=== PATIENT | female | born 1935 | race Caucasian/White ===

== ENCOUNTER 2019-10-14 15:28 | Inpatient (IN) | payer MEDICARE, OTHER ==
[~2019-10-14] VITALS: Ht 165.1 cm; Wt 72.5 kg
[2019-10-14] MEDS ORDERED: ASPIR 8181 MG PO (16:11)
[2019-10-14] MEDS ORDERED: LIPITOR20 MG PO (16:12)
[2019-10-14] MEDS ORDERED: CYMBALTA30 MG PO (16:13)
[2019-10-14] MEDS ORDERED: VITAMIN D325 MC2 PO (16:13)
[2019-10-14] MEDS ORDERED: LIDOCAINE1 EAC1 TP (16:14)
[2019-10-14] MEDS ORDERED: MAGOX 400400 MG PO (16:15)
[2019-10-14] MEDS ORDERED: PANTOPRAZOLE SO40 MG PO (16:16)
[2019-10-14] MEDS ORDERED: METOPROLOL SUCC50 MG PO (16:16)
[2019-10-14] MEDS ORDERED: MIRAPEX0.5 MG PO (16:17)
[2019-10-14] MEDS ORDERED: SENNA PLUS 8.61 EACH PO (16:18)
[2019-10-14] MEDS ORDERED: PRESERVISION A1 EAC1 PO (16:18)
[2019-10-14] MEDS ORDERED: ALDACTONE25 MG PO (16:19)
[2019-10-14] MEDS ORDERED: SPIRONOLACTONE50 MG PO (16:19)
[2019-10-14] MEDS ORDERED: TRAZODONE HCL50 MG (16:20)
[2019-10-14] MEDS ORDERED: COLACE100 MG PO (16:20)
[2019-10-14] MEDS ORDERED: MORPHINE SULFAT15 MG PO (16:21)
[2019-10-14] MEDS ORDERED: PERCOCET 5-3251 EACH PO (16:22)
--- OUTSIDE RECORDS SUMMARY | 2019-10-14 16:54 | XMS ---
PreManage Notification: KOBE MURILLO [employer] Events No recent Security Events currently on file [facility] in [facility] Days CARE PROVIDERS Name Unknown Snf Facility Current PHONE: [phone] Addison Thomas MD [facility] Current PHONE: Unknown Jamie has no Care Guidelines for this patient. Penny VISIT COUNT (12 MO.) 6 Juana Braden [address] [place] [address] TOTAL 7 NOTE: Visits indicate total known visits. ED/UCC VISIT TRACKING (12 MO.) 10/14/2019 15:30 CHARISSA Noonan [place] TYPE: Emergency COMPLAINT: - LATHARGIC, SOB 09/15/2019 13:55 Juana KATHLEEN [place] TYPE: Emergency DIAGNOSES: - Chronic kidney disease, stage 3 (moderate) - Other acute kidney failure - Localized edema - Fall - Hyperosmolality and hypernatremia - Other specified abnormal findings of blood chemistry - Anemia in other chronic diseases classified elsewhere 07/24/2019 18:29 Juana Ortabe ClMimi KATHLEEN [place] TYPE: Emergency DIAGNOSES: - Leg Swelling - Swollen Legs - Localized edema 04/07/2019 13:00 Juana Ortabe ClMimi [facility]LE[facility] [place] TYPE: Emergency DIAGNOSES: - Altered Mental Status - Shortness of Breath 02/01/2019 14:52 Juana Ashley KATHLEEN [place] TYPE: Emergency DIAGNOSES: - Chronic obstructive pulmonary disease with (acute) exacerbati - Calculus of ureter - Generalized pain, confusion - Disorder of kidney and ureter, unspecified - Shortness of Breath - Acute respiratory failure with hypoxia - Acute respiratory failure with hypercapnia 01/29/2019 07:32 Juana KATHLEEN [place] TYPE: Emergency DIAGNOSES: - Back Pain - Pain in thoracic spine 11/03/2018 10:22 Juana KATHLEEN [place] TYPE: Emergency DIAGNOSES: - Contusion of unspecified back wall of thorax, initial encount - Wrist Pain - Wrist Injury - Unspecified sprain of left wrist, initial encounter INPATIENT VISIT TRACKING (12 MO.) 09/15/2019 13:55 Juana KATHLEEN [place] TYPE: Internal Medicine DIAGNOSES: - Hyperosmolality and hypernatremia - Localized edema - Anemia in other chronic diseases classified elsewhere - Other specified abnormal findings of blood chemistry - Fever, unspecified - Other acute kidney failure - Chronic kidney disease, stage 3 (moderate) 04/07/2019 13:00 Juana SPENCE TYPE: General Medicine DIAGNOSES: - Shortness of breath - Acute kidney failure, unspecified 02/01/2019 14:52 Juana Ashley ClMimi [facility] [place] TYPE: Internal Medicine DIAGNOSES: - Acute respiratory failure with hypoxia - Dependence on supplemental oxygen - Chronic obstructive pulmonary disease with (acute) exacerbati - Essential (primary) hypertension - Age-related physical debility - Calculus of ureter - Acute and chronic respiratory failure with hypercapnia - Acute diastolic (congestive) heart failure - Other director long term care (current) drug therapy - Acute respiratory failure with hypercapnia - Disorder of kidney and ureter, unspecified - Acute and chronic respiratory failure with hypoxia [id number]
--- NOTE | 2019-10-14 22:00 | NUR ---
PT ARRIVES TO CCU ROOM 128, ARRIVES WITH RT, PLACED ON BIPAP SETTING 40% 24/08. PT IS MOANING AND AWAKE, ASSESSMENT DONE. LUNGS DIM AND TIGHT SOUNDING. GARCIA EMPTIED OF 2000ML. PT ALERT AND ORIENTED, ANSWERS APPROPRIATELY FOR PLACE, YEAR AND SELF. RT GIVING NEB TX.
--- NOTE | 2019-10-14 22:30 | NUR ---
DR WARNER UPDATED ON PT CONDITION AND PT'S MOANING IN PAIN-ORDER GIVEN FOR PRN MORPHINE.
--- NOTE | 2019-10-15 00:35 | NUR ---
PT WOKE UP AGIATED, PULLING OFF BIPAP, MOANING AND SAYING BACK IS HURTING. 2MG IV MORPHINE GIVEN.
--- NOTE | 2019-10-15 01:00 | NUR ---
PT AWAKE AND PULLING OFF BIPAP, MOANING ABOUT DIFFERENT THINGS "I WANT WATER!" "I CANT BREATHE!". IN TO REASSURE/CALM PT. WARM BLANKET PROVIDED. PT HELPED TO REPOSITION, EVENTUALLY CALMS SOME AND IS NOW RESTING WEARING BIPAP WITH EYES CLOSED. RR 24, SPO2 100%, HR 66 BIPAP SETTINGS REMAIN UNCHANGED, 24/5 AND FIO2 40%.
--- NOTE | 2019-10-15 03:21 | NUR ---
PT RESTING WITH EYES CLOSED, RESP EVEN AND UNLABORED, REMAINS ON BIPAP, HR 50'S.
--- NOTE | 2019-10-15 04:44 | NUR ---
PT HAS REMAINED RESTFUL AND CALM FOR THE LAST FOUR HOURS. HR 50'S. WEARING BIPAP WITH SPO2 99% 24/5 40%.
--- NOTE | 2019-10-15 06:56 | NUR ---
PT MOANING OUT, CALLING FOR WATER AND TEARING BIPAP OFF. IN TO HELP CALM PT, REPLACE BIPAP, GAVE MOUTH SWABS WITH WATER, AND REPOSITION IN BED.
--- NOTE | 2019-10-15 07:30 | NUR ---
REPORT RECIEVED. PATIENT IS ON BIPAP. ECHO BEING DONE AT BEDSIDE.
--- NOTE | 2019-10-15 08:00 | NUR ---
ECHO COMPLETE. ASSESSMENT DONE. WATER GIVEN PER REQUEST. ON OXYMASK FOR APPROX 5 MIN THEN BIPAP REAPPLIED. TALKED WITH PATIENT ABOUT OF CARE FOR DAY. UNSURE IF PATIENT IS UNDERSTAND OF THIS OR NOT.
--- NOTE | 2019-10-15 08:30 | NUR ---
DR. WARNER HERE TO SEE PATIENT. ORDERS RECIEVED. IVF D5 LR AT 50 ML/HR ORDERED AND HUNG. HAS BEEN REQUESTIN WATER. ORAL CARE GIVEN.
--- NOTE | 2019-10-15 08:55 | NUR ---
MORPHINE 2 MG GIVEN FOR GENERAL PAIN. LOPRESSOR 5 MG IV GIVEN PER ORDERS.
--- NOTE | 2019-10-15 09:05 | NUR ---
ZOFRAN GIVEN FOR MILD NAUSEA. REMAINS NPO.
--- NOTE | 2019-10-15 09:08 | EKG ---
[facility] [address] [place], [place] [address] Signed Sinus bradycardia with 1st degree AV block Otherwise normal ECG No previous ECGs available Confirmed by BELIA WARNER MD ([id number]) on 10/15/2019 9:08:34 AM Electronically Signed By: BELIA WARNER MD 10/15/19 0908 PATIENT NAME: KOBE MURILLO Electrocardiogram DATE OF : 37 PHYSICIAN: BELIA WARNER MD REPORT #: [id number] REPORT IS CONFIDENTIAL AND NOT TO BE RELEASED WITHOUT AUTHORIZATION
--- NOTE | 2019-10-15 10:10 | NUR ---
AWAKE. CONTINUE TO MOAN AT TIMES. BED LINEN CHANGED. REPOSITIONED.
--- NOTE | 2019-10-15 10:20 | NUR ---
REPOSITIONED. REMAINS ON BIPAP. VBG TO BE DRAWN SOON. MOANS OUT AT TIMES.
--- NOTE | 2019-10-15 10:30 | NUR ---
VBGS DRAWN AND SENT TO LAB. ORAL CARE REPEATED. IS MORE CALM AT THIS TIME.
--- NOTE | 2019-10-15 11:00 | NUR ---
VBG RESULTS, PH-7.31, PCO2-70.7, PO2-113, HCO2-43.5, SAT-98.9. PATIENT IS SLEEPING NO DISTRESS NOTED. IVF, GARCIA CATH IS PATENT.
--- NOTE | 2019-10-15 12:00 | NUR ---
REMAINS ASLEEP. RT HERE TO DONE NEB TREATMENT. RT DECREASED FIO2 ON BIPAP TO 30. NO FUTHER CHANGES AT THIS TIME.
--- NOTE | 2019-10-15 13:20 | NUR ---
AWAKE, VERY ANXIOUS. RETCHING, C/O NAUSEA, THEN HAD SMALL GREEN BILE LIKE EMESIS. MOANING. WHEN ASKED PATIENT IF SHE IS HAVING ABD PAIN SHE INDICATES THEAT SHE IS HAVIBG PAIN. FEELS THE NEED TO HAVE BM, BEDPAN GIVEN. PASSED FLATUS. REPOSITIONED.
--- NOTE | 2019-10-15 13:27 | NUR ---
MORPHINE 4 MG IV GIVEN FOR COMFORT. ORAL CARE GIVEN.
--- NOTE | 2019-10-15 13:40 | NUR ---
DR. WARNER UPDATED ON PATIENT. ORDERS RECIEVED TO GIVE DULCOLAX SUPP. PATIENT IS NOW SLEEPIN. WILL WAIT AT THIS TIME. IS ON OXYMASK AT 4 L CURRENTLY, WAS NAUSEATED.
[2019-10-15] MEDS ORDERED: ACETAMINOPHEN325 M1 PO (14:28)
[2019-10-15] MEDS ORDERED: DULCOLAX10 MG PR (14:29)
[2019-10-15] MEDS ORDERED: IPRAT-ALBUT 0.5-3 ML PO (14:30)
[2019-10-15] MEDS ORDERED: MILK OF MA400 MG/5 M PO (14:31)
[2019-10-15] MEDS ORDERED: MIRALAX17 GM PO (14:32)
[2019-10-15] MEDS ORDERED: VENTOLIN HFA18 GM PO (14:33)
[2019-10-15] MEDS ORDERED: ONDANSETRON ODT4 MG PO (14:34)
--- NOTE | 2019-10-15 14:48 | NUR ---
MEDICATION RECONCILIATION DONE
--- NOTE | 2019-10-15 16:10 | NUR ---
VBG'S DRAWN ON OXYMASK AT 4 L LITERS. ASSESSMENT DONE. IS ABLE TO FOLLOW COMMANDS. CONTINUE TO C/O SLIGHT NAUSEA. NO TREATMENT GIVEN AT THIS TIME.
--- NOTE | 2019-10-15 17:10 | NUR ---
restless. BIPAP ALARM GOING OFF. UPON ENTERING ROOM PATIENT IS MOANING AND SAING SHE IS HAVING A BM. INC OF SMALL AMOUNT OF STOOL. BEDPAN PLACED.
--- NOTE | 2019-10-15 17:20 | NUR ---
ON BEDPAN. MOANING. ANXIOUS. NAUSEATED. NOW ON OXYMASK AT 4 L . DIFFICULT TO CONSOLE PATIENT.
--- NOTE | 2019-10-15 17:40 | NUR ---
MORPHINE 4 MG IV GIVEN FOR COMFORT. ZOFRAN 4 MG IV GIVEN FOR NAUSEA.
--- NOTE | 2019-10-15 17:40 | NUR ---
WHILE ON BED NEGRO DID EXPELL SMALL AMOUNT OF LIQUID STOOL. BED NEGRO AKEN OUT AND WHILE ATTEMPTING TO CHANGE LINEN, SMALL STOOL LIQUID. ATTENDS CHANGED.
--- NOTE | 2019-10-15 18:00 | NUR ---
LAYING ON RIGHT SIDE. SATS DOWN TO LOW 80'S. HEAD REPOSITIONED. THEN SATS TO 90.
--- NOTE | 2019-10-15 18:10 | NUR ---
O2 SAT DOWN AGAIN TO LOW 80'S. BIPAP FIO2 INCREASED TO 40. DR. PUGH UPDATED, NO FUTHER ORDERS NOTED.
--- NOTE | 2019-10-15 18:55 | NUR ---
HAS BEEN SLEEPING SINCE MEDICATON GIVEN. REPORT TO MED-SURG.
--- NOTE | 2019-10-15 20:30 | NUR ---
AWAKENS EASILY, OFF CPAP AND OXYMASK 4L PLACED. USING SWABS TO MOISTEN MOUTH. REPOSITIONED. HAD SMEAR OF STOOL. PT FEELS LIKE SHE NEEDS TO HAVE BM BUT JUST PASSED GAS. PT WAS TALKATIVE.
--- NOTE | 2019-10-15 23:45 | NUR ---
PT MOAING, TOOK CPAP OFF. C/O NAUSEA WITH SOME RETCHING, NO EMESIS. GIVEN 4MG ZOFRAN IV. IV L FORARM LEAKING SLIGHTLY, DC'D. NEW IV STARTED R FORARM, SMALL AMT BRUISING AT SIGHT. PT C/O THIRST AND ABOUT 15MIN AFTER ZOFRAN WAS GIVEN SMALL SIPS WATER. JENSEN WELL ABLE TO TAKE PO MED WELL. IS PASSING GAS, NO STOOL NOTED ON ATTENDS. REPOSITIONED.
--- NOTE | 2019-10-16 02:35 | NUR ---
MORE WAKEFUL, CALLING FOR WATER. REPOSITIONED AND WATER PLACED IN REACH.
--- NOTE | 2019-10-16 04:09 | NUR ---
AWAKE MOANING, C/O ABD PAIN. GIVEN 5MG OXYCODONE. IS PASSING GAS. TAKING SIPS WATER. SATS 100%, 02 DEC TO 2L OXYMASK.
--- NOTE | 2019-10-16 05:30 | NUR ---
SLEEPING WITH OXYMASK IN PLACE.
--- NOTE | 2019-10-16 06:36 | NUR ---
PT MOANING WITH BACK PAIN. WILL TRY REPOSITIONING PT. LABS DRAWN PER SALINE LOCK.
--- NOTE | 2019-10-16 07:00 | NUR ---
VBG RESULTS BACK, C02 87.2, PH 7.25. PT CONT TO MOAN. GIVEN 2MG MORPHING IV AND PLACED ON BIPAP. PT THEN FELL ASLEEP.
--- NOTE | 2019-10-16 07:42 | NUR ---
REPORT RECIEVED. PATIENT IS RESTING IN BED WITH BIPAP ON. NO DISTRESS NOTED.
--- NOTE | 2019-10-16 08:00 | NUR ---
ROUTINE NEB GIVEN BY RT. ASSESSMENT DONE. PATIENT IS MOANING. OOB TO CHAIR WITH ASSIST.
--- NOTE | 2019-10-16 08:30 | NUR ---
MOANING, C/O NAUSEA. REMAINS IN CHAIR. ORAL CARE GIVEN, THEN BIPAP REAPPLIED.FI02 DECREASED TO 35% SAT98 TO 100. WILL CONTINUE TO TITRATE PRN. WANG SARMIENTO WITH SMALL AMOUNT OF CLEAR YELLOW URINE NOTED. IVF INFUSING AT 50 ML/HR.
--- NOTE | 2019-10-16 08:45 | NUR ---
O2 DECREASED TO 30% O2 SAT REMAIN IN MID TO HIGH 90'S. HAS BEEN MORE CALM .
--- NOTE | 2019-10-16 10:00 | NUR ---
SLEEPING IN CHAIR WITH BIPAP ON. O2 SAT ON 30% 94.
--- NOTE | 2019-10-16 11:30 | NUR ---
AWAKE, C/O GENERALIZED PAIN, MILD NAUSEA. IS CONFUSED. ASKING MANY QUESTIONS. OFF BIPAP, NOW ON O2 AT 2 L NC.
--- NOTE | 2019-10-16 12:00 | NUR ---
DR. PUGH HERE TO SEE PATIENT, ORDERS RECIEVED, VBG'S DRAWN. PATIENT IS COOPERATIVE. LASIX 20 MG IV GIVEN AND PREDNISONE 40 MG GIVEN. PATIENT HAD TROUBLE SWALLOWING PO PREDNISONE. WILL PUT IN APPLESAUSE FROM NOW ON. ASSESSMENT DONE. IVF REMAINS AT 50 ML/HR.
--- NOTE | 2019-10-16 12:05 | NUR ---
VBG RESULTS, PH-7.30, PCO2-73.7, PO2-103, HCO3-35.0.
--- NOTE | 2019-10-16 13:30 | NUR ---
attempted to feed patient lunch of mashed potatoes with gravy and pureed peaches. patient only took few small bites. having difficulty swallowing.
--- NOTE | 2019-10-16 13:58 | NUR ---
PT ASLEEP, ON CPAP. AND UNDER PRECAUTINS. UNABLE TO VISIT AT THIS TIME
--- NOTE | 2019-10-16 14:15 | NUR ---
REMAINS IN CHAIR. MOANING LOUDLY. C/O GENERAL PAIN.HAS BEEN ON O2 AT 2 L NC SINCE APPROX 1130.
--- NOTE | 2019-10-16 14:40 | NUR ---
OXYCODONE GIVEN FOR GENERAL PAIN. RATES 09/10.
--- NOTE | 2019-10-16 14:45 | NUR ---
BACK TO BED WITH ASSIST.BIPAP REAPPLIED. 30% FIO2, 24/6.
--- NOTE | 2019-10-16 16:00 | NUR ---
ORDERS RECIEVED TO GIVEN ENEMA. THIS DONE. SS ENEMA 1500 ML GIVEN. LARGE RESULTS. AFTER ENEMA, ASSESSMENT DONE. BIPAP AT 35% FIO2 DECREASED TO 30, SATS MID TO HIGH 90'S. IVF AND GARCIA PATENT. HAS BEEN TAKING FEW SIPS OF WATER.
--- NOTE | 2019-10-16 16:30 | NUR ---
ASSESSMENT DONE. NO CHANGES. O2 SORCE TODAY HAS BEEN BIPAP, OXYMASK, NC. CURRENTLY ON BIPAP AT 30% 24/09.
--- NOTE | 2019-10-16 16:45 | NUR ---
BIPAP OFF NOW. OXYMASK APPLIED AT 2 LITERS.
--- NOTE | 2019-10-16 16:50 | NUR ---
ZOFRAN 4 MG IV GIVEN FOR NAUSEA.
--- NOTE | 2019-10-16 18:56 | NUR ---
COUGHING UP MOD AMOUNT OF THICK YELLOWISH SPUTUM. MOANING, HAVING LEG PAIN.
--- NOTE | 2019-10-16 19:59 | NUR ---
ASLEEP CURLED UP ON L SIDE. SATS 88-90% ON 2L OXYMASK. AWAKENS EASILY AND FOLLOWS COMMANDS AND THEN BACK TO SLEEP.
--- NOTE | 2019-10-16 20:36 | NUR ---
PT CALLING OUT TO BE LET GO. IS ABLE TO REPEAT SHE IS IN A HOSPITAL, LATER SAID SHE WANTED TO GO HOME. ALSO C/O LEGS HURTING. GIVEN HS MIRAPEX. MEDS GIVEN WITH PUDDING, IN SMALL BITES FOLLOWED WITH MIRALAX MIXED IN WATER. PT REFUSED BIPAP AT THIS TIME.
--- NOTE | 2019-10-16 21:35 | NUR ---
PT AGITATED AND CONT TO CALL OUT FOR SON NA TO LET HER GO. HR 100. DR PUGH GIVEN UPDATE. SON CALLED AND HAD HIM SPEAK WITH PT. THIS NURSE ALSO GAVE HIM UPDATE, HE TOLD THIS NURSE THAT PATIENT DID HAVE A HISTORY OF CONFUSION AND HALLUCINATIONS WHEN SICK IN THE HOSPITAL. DR PUGH NOW IN DEPT AND AWARE.
--- NOTE | 2019-10-16 22:26 | NUR ---
PT FELL ASLEEP AND AWAKENED BY BP BEING TAKEN, PAINFUL TO PT. PT THEN INC LARGE SOFT AND LIQ STOOL. ATTENDS CHANGED, ABLE TO HELP WITH TURNING. BIPAP NOW IN PLACE.
--- NOTE | 2019-10-16 23:50 | NUR ---
PT MOANING AND AWAKE, OFF CPAP AND ON OXYMASK 2L. WHEN ASKED STATED HER LEGS HURT. GIVEN 5MG OXYCODONE PO. PT REPOSITIONS SELF. IS PASSING GAS.
--- NOTE | 2019-10-17 00:31 | NUR ---
STARTING TO CALL TO BE LET GO. FOUND TO BE INC LARGE AMT LIQ STOOL. C/O BEING COLD AFTER BED CHANGED, GIVEN WARM BLANKET. PLACED ON BIPAP.
--- NOTE | 2019-10-17 01:16 | NUR ---
CONT TO BE RESTLESS AND PAINFUL. PRECEDEX BOLUS STARTED AND WILL TITRATE INGFUSTION.
--- NOTE | 2019-10-17 01:22 | NUR ---
PRECEDX BOLUS COMPLETE. INFUSION STARTED AT 0.1MCG/KG/MIN. HR 67, BP 180/63 PT SLEEPING WITH BIPAP IN PLACE.
--- NOTE | 2019-10-17 02:27 | NUR ---
CONT TO C/O SEVERE LEG PAIN. GIVEN 5MG OXYCODONE PO.
--- NOTE | 2019-10-17 02:51 | NUR ---
PRECEDEX TRITRATED TO 0.6MCG/KG/MIN. PT BACK ON BIPAP.
--- NOTE | 2019-10-17 04:22 | NUR ---
PT AWAKENED WHEN BP OBTAINTED. MOANED AND RUBBED LEGS. AWAKE TO TAKE SIPS WATER. PLACED BACK ON BIPAP. PRRECEDEX BACK TO 6MCG/KG/MIN. HAD DECREASED IT TO 0.5MCG/KG/MIN HR DEC TO 50'S
--- NOTE | 2019-10-17 05:22 | NUR ---
AWAKE BRIEFLY TO TAKE BIPAP OFF, OXYMASK PLACED. PT ABLE TO GO BACK TO SLEEP. PRECEDEX REMAINS AT 0.6 MCG/KG/MIN.
--- NOTE | 2019-10-17 06:36 | NUR ---
RESTING, ABLE TO AWAKEN PT EASILY. PLACED BACK BIPAP. CONT ON PRECEDEX AT 6 MCG/KG/MIN.
--- NOTE | 2019-10-17 07:50 | NUR ---
PT KICKING LEGS IN BED AND SHAKING HEAD BACK AND FORTH. ASKED PT IF SHE NEEDS A BREAK FROM BIPAP, SHE SAYS YES. PT OFF BIPAP AND TAKE A FEW SIPS OF WATER, AND DOES ORAL CARE WITH ASSISTANCE FROM RN. PT STATES "I'M IN SO MUCH PAIN", 10 MG PO OXYCODONE GIVEN PO. PT ABLE TO SWALLOW ONLY ONE PILL AT A TIME AFTER BEING BOOSTED UP IN BED. PT ON 1.5 L O2 VIA OXYMASK, C/O NOT BEING ABLE TO BREATH DISPITE SATS OF 95-96%.
--- NOTE | 2019-10-17 08:15 | NUR ---
PT PLACED BACK ON BIPAP PER HER C/O NOT BEING ABLE TO BREATH, DISPITE HER O2 SAT OF 96% ON 1.5 L O2 VIA OXYMASK. PT JENSEN BIPAP WELL. VISABLE DECREASE IN WOB NOTED ONCE BIPAP IN PLACE.
--- NOTE | 2019-10-17 08:42 | NUR ---
IMAGING IN ROOM TO TAKE CHEST X-RAY NOW.
--- NOTE | 2019-10-17 09:15 | NUR ---
PT OFF BIPAP AND ON OXYMASK AT 1.5L 02. PT JENSEN WELL.
--- NOTE | 2019-10-17 09:55 | NUR ---
PT GIVEN FULL BED BATH, GARCIA CATH CARE DONE, ALL LINENS CHANGED. PT ABLE TO PARTICIPATE IN CARE BY HOLDING HER ARMS UP AND ASSISTING WITH ROLLING FROM SIDE TO SIDE. PT CALM AND COOPERATIVE. SKIN IS INTACT, NO RED AREAS NOTED. PT ABLE TO WASH HER OWN FACE. ADJUSTED UP IN BED FOR COMFORT. CALL LIGHT IS WITHIN REACH.
--- NOTE | 2019-10-17 10:04 | NUR ---
PT BACK ON BIPAP TO SLEEP.
--- NOTE | 2019-10-17 11:15 | NUR ---
IV PRESIDEX DRIP TURNED OFF AT THIS TIME.
--- NOTE | 2019-10-17 12:02 | NUR ---
PT SLEEPING QUIETLY AT THIS TIME WITH BIPAP IN PLACE.
--- NOTE | 2019-10-17 12:20 | NUR ---
TALKED WITH PT ABOUT PLAN OF CARE AND HER DESIRES. PT VERY CLEARLY STATED "I WANT TO GO HOME, I WANT TO GO TO [facility]" "I DON'T WANT TO LIVE LIKE THIS". EXPLAINED WHAT COMFORT CARE IS, AND HOW IT WILL WORK. PT STATES "I DON'T WANT ANY MORE PAIN". PT STATES TO THE DOCTOR SHE WANTS COMFORT CARE. KURT NA GRANT TO UPDATE ON PT STATUS AND DESIRES.
--- NOTE | 2019-10-17 12:54 | NUR ---
PT GRANDSON (ANTOINETTE) WAS AT THE BEDSIDE TO VISIT WITH PT. ALSO AT THE PT BEDSIDE ANSWERING ALL ANTOINETTE'S QUESTIONS ABOUT PT STATUS AND PLAN OF CARE. ANTOINETTE ASKS GOOD QUESTIONS, THEN CALLS HIS FATHER NA GRANT AND STATES "YOU BETTER GET OVER HERE". PT IS AGREABLE TO WAITING FOR HER SON TO GET TO THE BEDSIDE PRIOR TO STARTING COMFORT CARE.
--- NOTE | 2019-10-17 13:01 | NUR ---
PT UNDER PRECAUTIONS, WILL FOLLOW ABLE
--- NOTE | 2019-10-17 13:09 | NUR ---
PT RESTING QUIETLY AT THIS TIME WITH BIPAP IN PLACE.
--- NOTE | 2019-10-17 14:45 | NUR ---
PT REPORTS SHE IS INCONTINENT OF STOOL. FAMILY STEPS OUT OF THE ROOM FOR CHANELLE CARE. PT HAS MEDIMUM SIZE LOOSE STOOL. ATTENDS AND CHUCKS PAD CHANGED. FAMILY BACK AT BEDSIDE.
--- NOTE | 2019-10-17 15:06 | NUR ---
PT INCONTINENT OF ANOTHER SMALL LOOSE STOOL. FAMILY OUT OF THE ROOM FOR CHANELLE CARE. ATTENDS CHANGED, CHANELLE CARES DONE. PT BOOSTED UP IN BED FOR COMFORT. FAMILY BACK IN THE ROOM AT PT BEDSIDE. THIS RN ASKED FAMILY IF THEY HAVE ANY QUESTIONS AT THIS TIME, THEY DO NOT. ENCOURAGED FAMILY TO ASK IF THEY SHOULD HAVE ANY QUESTIONS/CONCERNS.
--- NOTE | 2019-10-17 16:00 | NUR ---
MET WITH PATIENTS SON AND GRANDSON. THEY AND PATIENT MET WITH DR PUGH A LITTLE BIT AGO AND SHE HAS DECIDED SHE DOES NOT WANT TO PURSUE AGRESSIVE TREATMENT ANYMORE AND IS CHOOSING COMFORT CARE TREATMENT. DISCUSSED WITH SON AND GRANDSON WHAT COMFORT CARE MEANS IN TERMS OF DISCHARGE. STAFF AND MD WILL CHANGE MEDS TO FOCUS ON COMFORT NEEDS AND THIS USUALLY TAKES 24 HOURS OR SO. DURING THIS TIME THEY CAN DECIDE ON WHERE SHE WILL DISCHARGE TOO. WE DISCUSSED THAT PATIENT CAN RETURN TO [facility] FOR ANOTHER WEEK WITH HER REHAB BENEFITS IN PLACE AND THEN SHE CAN MOVE TO A HOSPICE PROGRAM THERE, ALTHOUGH THIS IS NOT COVERED BY MEDICARE. ENCOURAGED THEM TO SEE IF SHE HAS ANY OTHER INSURANCE THAT CAN BE USED. DISCUSSED OPTION OF GOING HOME WITH FAMILY TO CARE FOR HER AND USING HOSPICE AT HOME. DISCUSSED HIRED CARE CAN ALSO BE ARRANGED AT HOME. DISCUSSED THAT SOMETIMES [facility] CAN DO AN ASSESSMENT AND SEE IF SHE WOULD QUALIFY FOR ANY ASSISTANCE WITH CARE. QUESTIONS WERE ANSWERED. SON IS NOT SURE HE CAN PROVIDE 24/7 CARE HIMSELF, THEY DISCUSSED TALKING WITH FAMILY IN THIS. ENCOURAGED THEM TO START THE CONVERSATIONS TODAY WITH FAMILY SO WE CAN HAVE AN IDEA ON WHAT TO PLAN FOR. THEY STATE THEY WILL. PATIENT LIV[place] IN [place] [place], DOES SON, BUT OTHER FAMILY LIVE IN [place]. CASE MANAGEMENT WILL CONTINUE TO FOLLOW.
--- NOTE | 2019-10-17 16:00 | NUR ---
FULL REPORT GIVEN TO JOSE CASTILLO ON MED/SURG FLOOR. ALL QUESTIONS ANSWERED.
--- NOTE | 2019-10-17 16:16 | NUR ---
PT MOVED OVER TO ROOM 119 ON MED/SURG FLOOR. ALL PT BELONGINGS WENT WITH PT. PT CHART AND KIT MEDS ALSO TAKEN OVER TO MED/SURG. PT TRANSPORTED VIA BED WITH OXYMASK IN PLACE 2L O2. ONCE INTO ROOM 119, PT PLACED BACK ON 1.5 L 02 VIA OXYMASK. PT STATES THIS IS COMFORTABLE AT THIS TIME. JOSE CASTILLO INTRODUCED TO PT.
--- NOTE | 2019-10-17 16:18 | NUR ---
84YR OLD WOMAN TRANSFERRED FROM CCU TO ROOM 119 IN BED, PT IS ALERT, STATES SHE IS COMFORTABLE, ASKED TO WATCH [employer] MOVIE ON, ORIENTED TO ROOM AND CALL LIGHT. DENIES ANY NEEDS AT THIS TIME. CALL LIGHT IN EASY REACH. ORDERS NOTED.
--- NOTE | 2019-10-17 18:05 | NUR ---
PT WAS INC OF SMALL BM, GOOD SKIN CARE GIVEN, REPOSITIONED FOR COMFORT, VANILLA MILKSHAKE REQUESTED FOR DINNER, DENIES FURTHER NEEDS.
--- NOTE | 2019-10-17 19:33 | NUR ---
CAME IN TO GET REPORT FROM JOSE HAM RN. 2 OXYCODONE GIVEN AN HOUR AGO DID NOT HELP WITH PAIN SO 5MG SL MORPHINE GIVEN. PATIENT SAYS IT IS STARTING TO HELP. CALL LIGHT IN REACH.
--- NOTE | 2019-10-17 22:12 | NUR ---
PATIENT HAS C/O PAIN ALL OVER 6/10 AND 10MG PO OXYCODONE GIVEN, PATIENT CONTINUES TO MOAN. CALL LIGHT IN REACH.
--- NOTE | 2019-10-18 00:23 | NUR ---
PATIENT RESTING IN LOW FOWLERS POSITION SUPINE. GRANDSON CALLED AND CHECKED ON HER AND I LET HIM KNOW SHE WAS SLEEPING, PATIENT DID HAVE ME TURN UP HER O2 A LITTLE, 1.5L TO 2L/PER OXYMASK. PATIENT CONTINUES RESTING AT THIS TIME, EYES CLOSED AND CALL LIGHT IN REACH.
--- NOTE | 2019-10-18 00:35 | NUR ---
PATIENT CALLED AND SAID SHE JUST WOKE UP AND WAS HAVING 4/10 GENERAL BODY PAIN AND 5MG SL MORPHINE. PATIENT TOLERATED WELL, TOOK A DRINK OF WATER AND SAYS SHE IS GOING TO WATCH TV AWHILE. CALL LIGHT IN REACH.
--- NOTE | 2019-10-18 01:42 | NUR ---
ADMINISTERED 5MG SL MORPHINE FOR 4/10 PAIN. PT IS MOANING AND STATING THAT SHE WANTS TO GO HOME. HELPED HER DRINK SOME WATER AND GET HER REPOSITIONED IN BED WITH HELP OF DAHLIA OHARA. PT STATES SHE IS WARM ENOUGH AND DENIES FURTHER NEEDS. CALL LIGHT IS IN HER HAND.
--- NOTE | 2019-10-18 02:38 | NUR ---
PATIENT RESTING QUIETLY NOW, DOES NOT APPEAR IN ANY DISCOMFORT, REMAINS ON 2L/OXYMASK. CALL LIGHT IN REACH AND EYES CLOSED.
--- NOTE | 2019-10-18 04:08 | NUR ---
PATIENT CALLED AND SAID SHE WAS HAVING 4/10 BODY PAIN AND 10MG OXYCODONE GIVEN. PATIENT WATCHING TV AT THIS TIME. CALL LIGHT IN REACH.
--- NOTE | 2019-10-18 05:43 | NUR ---
PATIENT HAS EITHER BEEN ASLEEP OR AWAKE ASKING FOR SOMETHING FOR PAIN. SHE IS AWAKE NOW ASSKING FOR PAIN MEDICATION AND SL MORPHINE AND OXYCODONE HAVE BEEN ALTERNATED THROUGH THE NIGHT.
--- NOTE | 2019-10-18 05:44 | NUR ---
EMPTIED PT'S GARCIA AND FILLED CUP WITH FRESH WATER. PT ASKING FOR PAIN MEDS. I INFORMED HER RN ELFEGO. BEDSIDE TABLE AND CALL LIGHT IN REACH.
--- NOTE | 2019-10-18 05:44 | NUR ---
PATIENT HAS REFUSED VS ALL NIGHT.
--- NOTE | 2019-10-18 07:10 | NUR ---
RECEIVED REPORT FROM ELFEGO CASTILLO. PT AT THIS TIME HAS NO COMPLAINTS OF PAIN.
--- NOTE | 2019-10-18 07:42 | NUR ---
THIS RN IN PTS ROOM PER PT REQUEST FOR MORE PAIN MEDS. THIS RN PROVIDED PT WITH 5MG OF MORPHINE AND WAS ABLE TO REPOSTION PT TO A MORE COMFORTABLE POSITION AT THIS TIME.
--- NOTE | 2019-10-18 09:20 | NUR ---
SPOKE WITH PATIENT IN ROOM. PATIENT IN BED WITH MASK 02 ON. RR RAPID AND SHALLOW. PATIENT MOANING SOFTLY WHEN I ENTERED. PATIENT AWAKE. ABLE TO TALK WITH ME. STATES SHE "HURTS ALL OVER" AND IS "MISERABLE". ASKED IF SHE NEEDED MORE PAIN MEDICATION SHE STATES "YES PLEASE". ASKED ABOUT DISCHARGE DECISIONS. SHE STATES SHE WANTS TO "GO HOME". WHEN ASKED IF SHE MEANS BACK TO [place] OR TO [facility] WITH FAMILY SHE STATES "TO [facility]". WHEN PRESSED PATIENT STATES SHE CAN'T GO BACK HOME TO [facility] "LIKE THIS". EXPLAINED WE CAN GET HOSPICE TO COME TO HER HOME SO SHE CAN SPEND HER LAST DAYS AT HOME, SHE STATES "I DON'T WANT MY FAMILY TO TAKE CARE OF ME". DISCUSSED WE STILL NEED TO GET HER PAIN BETTER CONTROLLED AND THEN WE CAN TALK AGAIN. ASKED IF SHE HAD A SCIENTOLOGY SHE GOES TO THAT WE CAN CALL HER CLERGY, SHE STATES ITS THE "FIRST [facility] IN [facility]". SHE DOESN'T KNOW IF SOMEONE AN COME OVER HERE. DISCUSSED WE HAVE PASTORAL CARE HERE AND I CAN HAVE RICHIE COME IN, SHE AGREES. ASKED IF SHE WANTED ME TO PRAY WITH HER, SHE DID. WE SAID A PRAYER AND I TOLD HER I WOULD GO FIND HER NURSE FOR PAIN MEDICATIONS. SHE HELD MY HAND AND THANKED ME. SPOKE WITH FREIGHT BROKER AGENT MOLLY WHO WAS JUST GOING IN TO MEDICATE HER. SPOKE WITH DR PUGH TO UPDATE HIM THAT ON MONDAY I WILL WORK ON DISCHARGE SHE IS NOT COMFORTABLE YET FOR A PLAN. SPOKE WITH PASTOR QUIROZ WHO WILL GO IN TO SIT WITH PATIENT.
--- NOTE | 2019-10-18 09:38 | NUR ---
in pts room per pt request to give more pain meds. this rn provided pt with 10mg of morphine to help better control her pain at this time
--- NOTE | 2019-10-18 09:40 | NUR ---
IN PTS ROOM TO GIVE MORE PAIN MEDS AND TO DO A SIMPLE ASSESSMENT ON PT. PT ABLE TO HELP ROLL HERSELF IN BED TO ALLOW THIS RN TO ASSIST HER IN REPOSITIONING. PT STATED THAT SHE FELT MORE COMFORTBALE AFTER SHE WAS REPOSTIONED. PT HAS INCREASED WORK OF BREATHING WITH SOME WHEEZES NOTED ON THE ANTERIOR UPPER LOBES. PT HAS ACTIVE BOWEL TONES. PT HAS A GARCIA STILL IN, DRIANING YELLOW URINE. NO IV AT THIS TIME.
--- NOTE | 2019-10-18 10:57 | NUR ---
IN PTS ROOM TO GIVE PT MORE PAIN MEDS. PT STATES THAT SHE IS GETTTING SOME RELIEF FROM THE BREAK THROUGH MORPHINE. THIS RN DISCUSSED WITH PT WHAT HER WISHES ARE, PT STATES THAT SHE JUST WANTS TO BE COMFORTBALE AND WANTS TO SLEEP
--- NOTE | 2019-10-18 11:17 | NUR ---
PATIENT AWAKE IN BED, FAMILY MEMBER AT BEDSIDE. CALL LIGHT IN REACH. PATIENT HAS NO NEEDS AT THIS TIME.
--- NOTE | 2019-10-18 11:45 | NUR ---
DOMENICA RN AT BEDSIDE. THIS PRODUCT ENGINEER USED WASHCLOTH ON PATIENTS FACE AND HANDS, APPLIED LOTION WELL. LOTION ON LEGS/FEET, HEELS FLOATED. PATIENT COMFORTABLE WITH SHEET AND PRAYER QUILT. CALL LIGHT WITHIN REACH.
--- NOTE | 2019-10-18 11:45 | NUR ---
PROVIDED PT WITH 15MG OF MORPHINE AT THIS TIME. THIS RN ATTEMPTED TO REMOVE PTS O2 BUT PT STATED THAT SHE WAS STILL FEELING SHORTNESS OF BREATH, THIS RN CHANGED PTS OXYGEN DILIVERY TO NASAL CANNULA INSTEAD OF OXYMASK FOR PTS COMFORT. MARICHUY VILLAGOMEZ IN ROOM TO PROVIDE CARE TO PT WELL
--- NOTE | 2019-10-18 12:04 | NUR ---
JOSUE AGUILAR REQUESTED I VISIT WITH PT AND INFORMED ME THAT PT HAS BEEN PLACED ON COMFORT CARE-HER DECISION. CONNECTED WITH BOTH HER SON JACOB AND G.SON SHELIA. LATRICE[facility]S HM IN [facility] IS CHOSEN FOR FINAL ARRANGEMENTS. HAD PRAYER WITH PT-SHE IS READY TO BE WITH VINAYAK SHE SAID. TIRED OF FIGHTING THE VILLARREAL. PT REQUESTED PRAYER, GAVE HER A P.SHAWL. 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 GOD BLESS
--- NOTE | 2019-10-18 13:10 | NUR ---
THIS RN POKED HER HEAD INTO PTS ROOM. PT APPEARS TO BE SLEEPING COMFORTABLY WITH RESPIRATIONS NOTED.
--- NOTE | 2019-10-18 15:20 | NUR ---
THIS RN IN PTS ROOM TO CHECK ON PT. PT APPEARS TO BE RESTING COMFORTABLY AT THIS TIME WITH RESPIRATIONS NOTED.
--- NOTE | 2019-10-18 20:01 | NUR ---
PATIENT JUST HAD FAMILY VISIT, RESTING IN BED AT THIS TIME, CALL LIGHT IN REACH.
--- NOTE | 2019-10-18 20:21 | NUR ---
PATIENT DOES NOT WANT TO BE ASSESSED OR HAVE VITALS TAKEN. PATIENT DROWSY AT THIS TIME ON 2L/NC, RESPIRATIONS SLIGHTLY LABORED AT 24/MIN. PATIENT DENIES PAIN OR NEED FOR ANY PAIN MEDICATION AT THIS TIME. CALL LIGHT IS IN REACH.
--- NOTE | 2019-10-18 22:42 | NUR ---
PATIENT RESTING IN BED, CALL LIGHT IN REACH.
--- NOTE | 2019-10-18 22:46 | NUR ---
PT RESTING IN BED WITH EYES CLOSED. RESPIRATIONS LABORED, EVEN. WHITEBOARD UPDATED. CALL LIGHT IN REACH.
--- NOTE | 2019-10-18 23:18 | NUR ---
IT IS TIME FOR PATIENT'S MS CONTIN, BUT SHE SAYS SHE IS NOT HAVING ANY PAIN RIGHT NOW AND DOESN'T NEED ANYTHING FOR PAIN AT THIS TIME. CALL LIGHT IN REACH. PATIENT HAS BEEN RESTING QUIETLY EYES CLOSED, SHALLOW REGULAR RESPIRATIONS AT 22/MIN ON 2L/NC.
--- NOTE | 2019-10-19 00:47 | NUR ---
PATIENT RESTING WITH EYES CLOSED, RESPIRATIONS SLIGHTLY LABORED AT 18/MIN, CALL LIGHT IN REACH, 2L/NC STILL ON.
--- NOTE | 2019-10-19 03:03 | NUR ---
PATIENT RESTING QUIETLY IN BED, RESPIRATIONS REMAIN A LITTLE LABORED, 12/MIN, CALL LIGHT IN REACH. REMAINS ON 2L/NC.
--- NOTE | 2019-10-19 05:02 | NUR ---
PATIENT RESTING IN BED, CALL LIGHT IN REACH, RN AT BEDSIDE.
--- NOTE | 2019-10-19 05:07 | NUR ---
PATIENT HAS NOT WANTED ANY PAIN MEDICATION ALL SHIFT UNTIL JUST NOW, SHE SAID,"5/10" FOR HER PAIN AND WAS GIVEN 15MG SL MORPHINE. PATIENT'S URINE OUTPUT REMAINS DECREASED, ONLY 130MLS IN THE GARCIA THIS SHIFT, DR. PUGH INFORMED STAFF EARLIER HE WOULD WORRY ABOUT URINE OUTPUT IN THE MORNING. PATIENT HAS RESTED WELL MOST OF THE NIGHT AND CALL LIGHT IS IN REACH.
--- NOTE | 2019-10-19 05:41 | NUR ---
PATIENT COUGHED OUT SOME OF HER MORPHINE AND WAS GIVEN THE LAST 5 OF HER 20MG DOSE. CALL LIGHT IN REACH, PATIENT'S FACE WASHED AND PATIENT WAS ABLE TO DRINK A LITTLE APPLE JUICE. PATIENT IS CALMER NOW AND NOT MOANING. CALL LIGHT IN REACH.
--- NOTE | 2019-10-19 09:25 | NUR ---
HELPED PATIENT WITH BREAKFAST. WASHED FACE WITH WARM WASHCLOTH. DID ORAL CARE. CALL LIGHT IN REACH. NO FURTHER NEEDS AT THIS TIME.
--- NOTE | 2019-10-19 12:10 | NUR ---
pt appears to be resting comfortably at this time. pts respiratory rate = 12
--- NOTE | 2019-10-19 12:25 | NUR ---
Attempted to visit PT at Pastor Pritchard's recommendation. PT opened eyes but did not respond to my presence or touch. Offered quiet prayer at bedside and left PT to rest.
--- NOTE | 2019-10-19 13:00 | NUR ---
pt appears to be resting comfortably still. pt does have increased work of breathing. respirations = 12
--- NOTE | 2019-10-19 21:45 | NUR ---
ANNA STERLING INFORMED ME THAT PT HAD , AND INDICATED FAMILY HAD JUST LEFT THE FACILITY. FINE UNHAIRER ELEANOR CALLED CORONOER AND DONOR AND LINE AND INDICATED BODY COULD BE RELEASED. CALLED [facility] AT 2019. THEY INDICATED [facility]OUDL BE DOING THE REMOVAL FOR HT[facility]. MARIXA CALLED ME AT 2041 TO INDICATE THEY WERE ON THE WAY. BODY AND ALL PERSONAL BELONGINGS WERE TURNED OVER TO [facility] AT 2103. HOME INFORMATION FORM RETURNED TO CHART AT [facility].
== END 2019-10-19 18:58 | DRG 291 ==
LOC: ED 15:28 → MS 19:56 → CCU 19:56 → MS 10-17 16:00
PROVIDERS: ADMIT Internal Medicine
PROC: 5A09357 Assistance with Respiratory Ventilation, Less than 24 Consecutive Hours, Continuous Positive Airway Pressure (ICD-10-PCS; principal; 2019-10-14)
DX: I50.33 Acute on chronic diastolic (congestive) heart failure (principal); J96.21 Acute and chronic respiratory failure with hypoxia; J96.22 Acute and chronic respiratory failure with hypercapnia; F11.20 Opioid dependence, uncomplicated; Z20.828 Contact with and (suspected) exposure to other viral communicable diseases; J44.9 Chronic obstructive pulmonary disease, unspecified; K21.9 Gastro-esophageal reflux disease without esophagitis; E78.5 Hyperlipidemia, unspecified; G25.81 Restless legs syndrome; G89.4 Chronic pain syndrome; F51.04 Psychophysiologic insomnia; Z51.5 Encounter for palliative care; Z88.8 Allergy status to other drugs, medicaments and biological substances; Z79.82 Long term (current) use of aspirin; Z79.899 Other long term (current) drug therapy
CPT/HCPCS: 36600; 51702; 71045; 74177; 80053; 80069; 82607; 82728; 82746; 82803; 83540; 83605; 83735; 83880; 84466; 84484; 85025; 85045; 87070; 87077; 87186; 87205; 93005; 93010; 93306; 94640; 94660; 99285-25; C9803; J1650; J1940; J2270; J2405; J2930; J3475; J7121; J7512; Q9967